=== PATIENT | female | born 1980 | race Caucasian/White ===

== ENCOUNTER 2020-07-06 00:41 | Emergency (ER) | payer OTHER ==
[~2020-07-06] VITALS: Ht 167.6 cm; Wt 107.0 kg
--- NOTE | ~2020-07-06 | EKG ---
[facility] [address] [place] [address] ELECTROCARDIOGRAM REPORT Name: GIULIANA VELASQUEZ Room #: [facility].#: [id number] Admission: Attend Phys: Discharge: Date of : 84 Report #: [id number] THIS REPORT FOR: cc: Erasmo Zimmerman MD ~ THIS REPORT FOR: //name// [facility] ED Test Date: 2020-07-06 Test Time: 00:47:54 Pat Name: GIULIANA VELASQUEZ Department: Room: Gender: F Qualitative Researcher: : 1980 Requested By: Felipe Good Order Number: [id number] MD: Measurements Intervals [place] Rate: 68 P: 14 IN: 126 QRS: 39 QRSD: 99 T: 45 QT: 423 QTc: 450 Interpretive Statements Sinus rhythm No previous ECG available for comparison [email or web address] By: Erasmo Zimmerman MD /EPI
[2020-07-06 01:52] LABS: ABSOLUTE NEUTROPHILS 5.3 thou/uL (1.4-8.2); BASOPHILS 0.8 % (0.0-2.0); EOSINOPHILS 2.2 % (0.0-3.0); HEMATOCRIT 33.4 % (37.0-47.0); HEMOGLOBIN 10.8 gm/dL (12.0-15.0); LYMPHOCYTES 26.5 % (24.0-44.0); MCH 25.4 pg (26.0-34.0); MCHC 32.3 g/dL (28.0-37.0); MCV 78.6 fL (80.0-100.0); MONOCYTES 7.4 % (1.0-8.0); PLATELET COUNT 272 thou/uL (150-400); POLYS 63.1 % (36.0-66.0); RBC 4.26 mil/uL (4.20-5.00); RDW 14.7 % (10.5-14.5); WBC 8.4 thou/uL (4.0-11.0)
[2020-07-06 01:56] LABS: ANION GAP 7 mmol/L (7-16); BUN 11 mg/dL (7-18); CALCIUM 8.1 mg/dL (8.5-10.1); CHLORIDE 103 mmol/L (98-107); CO2 29 mmol/L (21-32); CREATININE 1.1 mg/dL (0.6-1.0); GLUCOSE 87 mg/dL (74-106); POTASSIUM 3.1 mmol/L (3.5-5.1); SODIUM 139 mmol/L (136-145)
[2020-07-06 02:06] LABS: ALBUMIN 2.8 g/dL (3.4-5.0); LIPASE 96 U/L (73-393); MAGNESIUM 1.8 mg/dL (1.8-2.4); SGOT 15 U/L (15-37); SGPT 14 U/L (30-65); TOTAL PROTEIN 6.7 g/dL (6.4-8.2); TROPONIN-I <0.06 ng/mL (<0.06)
[2020-07-06 02:26] LABS: TOTAL BILIRUBIN < 0.1 mg/dL (0.2-1.0)
[2020-07-06] MEDS ORDERED: PRILOSEC OTC20 MG PO (02:40)
[2020-07-06] MEDS ORDERED: TRAMADOL 50 MG50 MG PO (02:40)
[2020-07-06] MEDS ORDERED: NAPROSYN500 MG PO (02:48)
[2020-07-06 03:00] VITALS: BP 141/96
== END 2020-07-06 03:00 | disposition home or self-care (01) ==
LOC: ER 00:41
PROVIDERS: Emergency Medicine
DX: R10.11 Right upper quadrant pain (principal); E87.6 Hypokalemia; D50.9 Iron deficiency anemia, unspecified; R07.89 Other chest pain; I10 Essential (primary) hypertension

== ENCOUNTER 2020-08-26 10:51 | Emergency (ER) | payer OTHER ==
[~2020-08-26] VITALS: Ht 167.6 cm; Wt 111.1 kg
[~2020-08-26 10:51] MED LIST: NAPROSYN500 MG PO; PRILOSEC OTC20 MG PO; TRAMADOL 50 MG50 MG PO
[2020-08-26] MEDS ORDERED: HYDROCHLOROTHIA25 M2 PO (11:20)
[2020-08-26] MEDS ORDERED: NORVASC 2.5 MG2.5 M1 PO (11:21)
[2020-08-26 13:08] VITALS: BP 145/90
== END 2020-08-26 13:14 | disposition home or self-care (01) ==
LOC: ER 10:51
DX: M25.532 Pain in left wrist (principal); I10 Essential (primary) hypertension; Z90.49 Acquired absence of other specified parts of digestive tract; Z79.899 Other long term (current) drug therapy; X50.1XXA Overexertion from prolonged static or awkward postures, initial encounter; Y93.89 Activity, other specified; Y92.89 Other specified places as the place of occurrence of the external cause; Y99.8 Other external cause status

== ENCOUNTER 2021-08-12 05:39 | Emergency (ER) | payer OTHER ==
[~2021-08-12] VITALS: Ht 167.6 cm; Wt 106.1 kg
[~2021-08-12 05:39] MED LIST changes: +HYDROCHLOROTHIA25 M2 PO; +NORVASC 2.5 MG2.5 M1 PO
[2021-08-12 06:22] LABS: HEMATOCRIT 34.1 % (37.0-47.0); MCH 25.7 pg (26.0-34.0); MCHC 32.4 g/dL (28.0-37.0); MCV 79.5 fL (80.0-100.0); RBC 4.29 mil/uL (4.20-5.00); RDW 14.8 % (10.5-14.5); WBC 6.6 thou/uL (4.0-11.0)
[2021-08-12 06:27] LABS: CALCIUM 8.5 mg/dL (8.5-10.1); CREATININE 0.9 mg/dL (0.6-1.0); POTASSIUM 3.4 mmol/L (3.5-5.1)
[2021-08-12 06:35] LABS: ALBUMIN 3.1 g/dL (3.4-5.0); TOTAL BILIRUBIN 0.2 mg/dL (0.2-1.0)
[2021-08-12 07:41] VITALS: BP 143/91
--- NOTE | 2021-08-12 07:57 | EKG ---
[address] [place] [address] ELECTROCARDIOGRAM REPORT Name: GIULIANA VELASQUEZ Room #: [facility]#: [id number] Admission: 08/12/21 Attend Phys: Discharge: 08/12/21 Date of : 84 Report #: [id number] [facility] ED Test Date: 2021-08-12 Test Time: 05:50:52 Pat Name: GIULIANA VELASQUEZ Department: Room: Gender: F Crew Foreman: SUGEY : 1980 Requested By: Chiara Short Order Number: [id number] MD: Mckinley Camargo Measurements Intervals [place] Rate: 58 P: 46 ND: 121 QRS: 23 QRSD: 103 T: 35 QT: 448 QTc: 441 Interpretive Statements Sinus bradycardia Compared to ECG 07/06/2020 00:47:54 No significant changes Electronically Signed On 08-12-2021 7:57:23 BALER by Mckinley Camargo [email or web address] <ELECTRONICALLY SIGNED> By: Mckinley Camargo MD, [facility] 08/12/21 [id number] Mckinley Camargo MD, FACC /EPI
== END 2021-08-12 07:41 | disposition home or self-care (01) ==
LOC: ER 05:39
PROVIDERS: Student in an Organized Health Care Education/Training Program
DX: R07.89 Other chest pain (principal); I10 Essential (primary) hypertension; Z90.89 Acquired absence of other organs; Z90.49 Acquired absence of other specified parts of digestive tract; Z79.899 Other long term (current) drug therapy

== ENCOUNTER 2021-09-13 17:06 | Emergency (ER) | payer OTHER ==
[~2021-09-13] VITALS: Ht 167.6 cm; Wt 107.0 kg
[2021-09-13] MEDS ORDERED: TYLENOL325 M1 PO (17:14)
[2021-09-13] MEDS ORDERED: TESSALON PERLE100 MG PO (18:33)
[2021-09-13] MEDS ORDERED: PROAIR HFA8.5 GM INH (18:33)
[2021-09-13 18:38] VITALS: BP 187/128
== END 2021-09-13 18:43 | disposition home or self-care (01) ==
LOC: ER 17:06
DX: U07.1 COVID-19 (principal); I10 Essential (primary) hypertension; Z90.49 Acquired absence of other specified parts of digestive tract; Z79.899 Other long term (current) drug therapy